=== PATIENT | female | born 1970 | race Caucasian/White ===

== ENCOUNTER → 2020-12-17 | Outpatient (CLI) | payer SELFPAY ==
[2020-12-17 11:20] LABS: ALBUMIN 4.1 g/dL (3.5-5.0); POTASSIUM 4.4 mmol/L (3.5-5.1)
[2020-12-17 11:21] LABS: CALCIUM 9.3 mg/dL (8.3-10.5)
[2020-12-17 11:23] LABS: TOTAL PROTEIN 6.8 g/dL (6.4-8.3)
[2020-12-17 11:25] LABS: TOTAL BILIRUBIN 0.4 mg/dL (0.2-1.2)
[2020-12-17 11:35] LABS: HEMATOCRIT 44.1 % (37.0-47.0); HEMOGLOBIN 14.2 g/dL (12.5-16.0); MEAN PLATELET VOLUME 9.4 fl (7.4-10.4); RED BLOOD COUNT 5.06 M/mm3 (4.10-5.30); RED CELL DISTRIBUTION WIDTH 15.3 % (11.5-14.5); WHITE BLOOD COUNT 6.1 K/mm3 (4.8-10.8)
== END ==
LOC: LAB 10:43
DX: I10 Essential (primary) hypertension (principal); E78.00 Pure hypercholesterolemia, unspecified; R52 Pain, unspecified